=== PATIENT | female | born 1985 | race Caucasian/White ===

== ENCOUNTER 2017-07-06 17:02 | Emergency (ER) | payer SELFPAY ==
[2017-07-06 17:22] LABS: BILIRUBIN,URINE NEGATIVE (NEG); CLARITY,URINE CLEAR; COLOR,URINE YELLOW; GLUCOSE,URINE NEGATIVE (NEG); NITRITE,URINE NEGATIVE (NEG); PH,URINE 5.5; PROTEIN,URINE NEGATIVE (NEG-TRACE)
[2017-07-06 17:28] LABS: NEG OBC UR NEG; POS OBC UR POS; U PREG PATIENT NEGATIVE (NEG)
[2017-07-06 17:29] LABS: BACTERIA,URINE MOD /HPF (0-FEW); SQUAMOUS EPITHELIAL CELL,UR MOD /LPF
[2017-07-06] MEDS: AZITHROMYCIN 250 MG TABLET. PO (17:51)
[2017-07-06] MEDS: metroNIDAZOLE 500 MG TABLET PO (17:51)
[2017-07-06] MEDS: cefTRIAXone IM 250 MG VIAL IM (17:52)
== END 2017-07-06 18:15 | disposition home or self-care (01) ==
LOC: ER 17:02
DX: R30.0 Dysuria (principal); Z20.2 Contact with and (suspected) exposure to infections with a predominantly sexual mode of transmission
CPT/HCPCS: 81001; 81025; 87491; 87591; 96372; 99284; J0696; Q0144

== ENCOUNTER 2017-09-03 15:19 | Emergency (ER) | payer SELFPAY ==
[2017-09-03 16:04] LABS: URINE HCG POC HCG NEGATIVE (Negative)
[2017-09-03 16:18] LABS: BILIRUBIN,URINE SMALL (NEG); CLARITY,URINE CLEAR; GLUCOSE,URINE NEGATIVE (NEG); NITRITE,URINE NEGATIVE (NEG); PROTEIN,URINE NEGATIVE (NEG-TRACE)
[2017-09-03 16:25] LABS: COLOR,URINE DK YELLOW
[2017-09-03 16:29] LABS: BACTERIA,URINE MANY /HPF (0-FEW); HYALINE CASTS, URINE FEW /HPF; RBC,URINE OCC /HPF (0-2); SQUAMOUS EPITHELIAL CELL,UR MOD /LPF
== END 2017-09-03 16:46 | disposition home or self-care (01) ==
LOC: ER 16:46
DX: N39.0 Urinary tract infection, site not specified (principal)
CPT/HCPCS: 81001; 81025; 87086; 99284